=== PATIENT | male | born 1995 | race Caucasian/White ===

== ENCOUNTER → 2018-05-10 | Outpatient (CLI) | payer OTHER ==
[~2018-05-10] MED LIST: FLUT16SP19 NS; LEVO112T44 PO; OLOP30.53 NS; [UNRECOGNIZED DRUG - OTHER]; antihistamine
--- NOTE | 2018-05-10 13:29 | RADIOLOGY IMAGING REPORT ---
FACILITY: [facility] PATIENT NAME: Isaac Sewell : 1995 MR: [id number] V: [id number] EXAM DATE: ORDERING PHYSICIAN: KENISHA GARCES TECHNOLOGIST: Location: [facility] [place] Patient: Isaac Sewell : 1995 Visit/Account:[id number] Date of Sevice: 05/10/2018 TESTICULAR HISTORY: Metastatic testicular pain extending into right inguinal region COMPARISON: None. FINDINGS: Testes: Right testicle measures 4.5 x 2.4 x 3.1 cm left testicle measures 5.1 x 2.2 x 3.4 cm Symmetr ic and unremarkable blood flow documented by color and Duplex Doppler ultrasound. Epididymides: The head epididymis on the right measures 9 x 10 x 21 mm appear slightly heterogeneous. The head the epididymis on the left measures 9 x 11 x 20 mm and contains a 1.2 cm debris-filled cys t Blood flow is unremarkable in each epididymis by color Doppler ultrasound. Hydrocele: Small bilaterally Varicocele: None. IMPRESSION: Small bilateral hydroceles The head the epididymides appear prominent bilaterally. The head epididymis on the right appears het erogeneous. Head of the epididymis on the left contains a 1.2 cm debris-filled cyst. Changes could be reflection of epididymitis. Clinical correlation needed Results were called to KENISHA GARCES at 05/10/2018 1:24 PM. Report Dictated By: Sydnie Graham MD at 05/10/2018 1:19 PM Report E-Signed By: Sydnie Graham MD at 05/10/2018 1:24 PM WSN:[id number]
== END ==
LOC: US 12:21
PROVIDERS: ATTEND Nurse Practitioner Family
DX: N50.3 Cyst of epididymis (principal)
CPT/HCPCS: 76870